=== PATIENT | male | born 1990 | race Caucasian/White ===

== ENCOUNTER → 2019-09-03 | Emergency (ER) | payer OTHER ==
[~2019-09-03] VITALS: Ht 182.9 cm; Wt 84.4 kg
== END | disposition home or self-care (01) ==
LOC: ER 10:33
DX: S81.821A Laceration with foreign body, right lower leg, initial encounter (principal); W45.8XXA Other foreign body or object entering through skin, initial encounter; Y93.89 Activity, other specified; Y92.89 Other specified places as the place of occurrence of the external cause; Y99.8 Other external cause status